=== PATIENT | male | born 1955 | race Hispanic/Latino ===

== ENCOUNTER 2019-03-15 07:32 | Outpatient (CLI) | payer OTHER ==
--- NOTE | 2019-03-15 08:05 | RAD ---
CERVICAL SPINE 4 VIEWS: Date: 03/15/19 INDICATION: Neck pain. FINDINGS: There are moderate to severe hypertrophic degenerative changes present. Large anterior osteophytes ar e seen throughout the cervical spine, most pronounced at C3, C4, and C5. Slight posterolisthesis of C 4 on C5. Mild loss of disc space at all levels. Facet hypertrophy. IMPRESSION: Moderately severe hypertrophic degenerative changes. POS: [facility]
== END 2019-03-15 07:33 | disposition home or self-care (01) ==
LOC: RAD-FRANK 07:32
PROVIDERS: ATTEND Nurse Practitioner Family
DX: M54.2 Cervicalgia (principal); M47.812 Spondylosis without myelopathy or radiculopathy, cervical region
CPT/HCPCS: 72040